=== PATIENT | male | born 1950 | race Caucasian/White ===

== ENCOUNTER 2017-05-27 10:30 | Outpatient (CLI) | payer MEDICARE, OTHER ==
--- NOTE | 2017-05-27 12:56 | CT ---
CTA OF THE THORAX UTILIZING IV CONTRAST AND 3D REFORMATTED IMAGING: CONTRAST: 100 cc of Isovue 370. INDICATION: Evaluate for thoracic aortic aneurysm. FINDINGS: The ascending thoracic aorta measures 3.3 cm in its greatest AP dimension. The thoracic aortic arch measures 2.9 cm. Descending thoracic aorta measures 2.6 cm. There are mild vascular calcifications involving the coronary arteries and thoracic aorta. No definite central pulmonary embolus is evident . The lungs are clear. No pleural effusion or pneumothorax is evident. No enlarged lymph nodes are pr esent. There are small hypodensities seen within both hepatic lobes. One of the largest hypodense lesions s een within the left thyroid lobe measuring 1.4 cm is suspicious for a small cyst. There is an additi onal lobulated cyst within segment 6 of the right hepatic lobe measuring 2.4 cm. Again, these are li evelia reflective of cysts in the absence of any history of primary malignancy. There is some low density seen within the portal vein which is likely related to admixture of contras t with nonopacified blood. The adrenal glands appear within normal limits. Visualized spleen is unr emarkable. No acute osseous abnormality is evident. There is scattered degenerative and osteoarthritic change. IMPRESSION: 1. There is ectasia of the aortic arch measuring up to 2.9 cm. The remainder of the thoracic aorta was within normal limits. There are mild vascular calcifications involving the coronary thoracic aor ta. 2. Hypodensities within the liver most likely reflective of cyst in the absence of any history of ma lignancy. 3. Filling defect seen within the portal vein likely related to admixture of contrast with nonopacif ied blood. POS: MISTY
== END 2017-05-27 10:31 | disposition home or self-care (01) ==
LOC: CT 10:30
PROVIDERS: ATTEND Internal Medicine Cardiovascular Disease
DX: I71.2 Thoracic aortic aneurysm, without rupture (principal); K76.89 Other specified diseases of liver
CPT/HCPCS: 71275

== ENCOUNTER 2018-07-25 02:51 | Outpatient (CLI) | payer MEDICARE, OTHER ==
[2018-07-25 11:14] LABS: #Basophils 0.1 thou/uL (0.0-0.2); #Eosinphils 0.1 thou/uL (0.0-0.7); #Lymphocytes 1.3 thou/uL (1.20-3.40); #Monocytes 0.5 thou/uL (0.11-0.59); #Neutrophils 2.4 thou/uL (1.40-6.50); %Basophils 1.2 % (0.0-1.0); %Eosinophils 2.6 % (0.0-10.0); %Lymphocytes 30.1 % (21.0-51.0); %Monocytes 11.1 % (0.0-10.0); Hemoglobin 13.1 g/dL (14.0-18.0); Mean Corpuscular HGB CONC 32.2 g/dL (32.0-36.0); Mean Corpuscular Hemoglobin 29.5 pg (27.0-31.0); Mean Corpuscular Volume 91.7 fL (78.0-98.0); Mean Platelet Volume 7.2 fL (7.4-10.4); Platelet Count 248 thou/uL (130-400); RBC Distribution Width 11.6 % (11.5-14.5); Red Blood Cell (RBC) Count 4.45 mill/uL (4.70-6.10); White Blood Cell (WBC) Count 4.4 thou/uL (4.8-10.8)
[2018-07-25 11:19] LABS: PTT 29.3 SEC (22.9-36.1); Prothrombin Time 13.2 SEC (12.0-14.7)
[2018-07-25 11:45] LABS: ALT (SGPT) 18 U/L (8-55); AST (SGOT) 17 U/L (5-34); Albumin 3.9 g/dL (3.4-4.8); Alkaline Phosphatase 56 U/L (40-150); Anion Gap 11 mmol/L (10-20); BUN (Urea Nitrogen) 19 mg/dL (8.4-25.7); Bilirubin, Total 0.4 mg/dL (0.2-1.2); Calc. Creatinine Clearance 0 mL/min (70-130); Calcium 9.1 mg/dL (7.8-10.44); Carbon Dioxide 23 mmol/L (23-31); Cardiac Risk 3.3 (Less than 4.5); Chloride 109 mmol/L (98-107); Cholesterol 151 mg/dl (< 200 Desired); Estimated GFR-MDRD 75; Globulin 2.4 g/dL (2.4-3.5); Glucose 106 mg/dL (80-115); HDL Cholesterol 46 mg/dL (>60 Neg Risk); LDL Cholesterol, Calculated 69 mg/dL; Potassium 4.4 mmol/L (3.5-5.1); Protein, Total 6.3 g/dL (5.8-8.1); Sodium 139 mmol/L (136-145); Triglycerides 178 mg/dL (Less than 150)
== END 2018-07-25 02:52 | disposition home or self-care (01) ==
LOC: LABBT 02:51
PROVIDERS: ATTEND Internal Medicine Cardiovascular Disease
DX: Z01.812 Encounter for preprocedural laboratory examination (principal); I25.10 Atherosclerotic heart disease of native coronary artery without angina pectoris
CPT/HCPCS: 80053; 80061; 85025; 85610; 85730

== ENCOUNTER 2018-08-02 06:00 | Day surgery (SDC) | payer MEDICARE, OTHER ==
[2018-07-25 11:03] VITALS: BMI 32.1
[2018-08-02 07:59] LABS: Cardiac Risk 3.1 (Less than 4.5)
[2018-08-02] MEDS ORDERED: Midazolam HCl 2 mg/2 ml Vial ONE (09:01)
[2018-08-02] MEDS ORDERED: Fentanyl 100 MCG/2 ML VIAL ONE (09:01)
[2018-08-02] MEDS ORDERED: Iopamidol 370 76% 100 ML VIAL ONE (10:52)
== END 2018-08-02 12:50 | disposition home or self-care (01) ==
LOC: CCL 06:00
PROVIDERS: ATTEND Internal Medicine Cardiovascular Disease
PROC: 4A023N7 Measurement of Cardiac Sampling and Pressure, Left Heart, Percutaneous Approach (ICD-10-PCS; principal; 2018-08-02)
PROC: B2111ZZ Fluoroscopy of Multiple Coronary Arteries using Low Osmolar Contrast (ICD-10-PCS; 2018-08-02)
DX: I35.1 Nonrheumatic aortic (valve) insufficiency (principal); K21.9 Gastro-esophageal reflux disease without esophagitis; E78.00 Pure hypercholesterolemia, unspecified; I71.2 Thoracic aortic aneurysm, without rupture; C61 Malignant neoplasm of prostate; I10 Essential (primary) hypertension; Z79.82 Long term (current) use of aspirin; Z79.899 Other long term (current) drug therapy; Z88.5 Allergy status to narcotic agent; Z82.49 Family history of ischemic heart disease and other diseases of the circulatory system
CPT/HCPCS: 80061; 93458; 99152; C1769; J1644; J2250; J3010; Q9967

== ENCOUNTER 2023-09-02 07:58 | Outpatient (CLI) | payer MEDICARE, OTHER | END 2023-09-02 07:59 | disposition home or self-care (01) | LOC: CT 07:58 | PROVIDERS: ATTEND Family Medicine | DX: R10.2 Pelvic and perineal pain (principal) | CPT/HCPCS: 72194; 82565 ==

== ENCOUNTER 2025-05-30 10:38 | Outpatient (CLI) | payer MEDICARE, OTHER | END 2025-05-30 10:39 | disposition home or self-care (01) | LOC: SCSULT 10:38 | PROVIDERS: ATTEND Family Medicine | DX: R22.41 Localized swelling, mass and lump, right lower limb (principal) | CPT/HCPCS: 76999 ==